=== PATIENT | female | born 1965 ===

== ENCOUNTER 2023-06-21 17:54 | Emergency (ER) | payer OTHER, SELFPAY ==
[2023-06-21 17:56] VITALS: BP 137/84
[2023-06-21 19:00] VITALS: BP 128/78
[2023-06-21 19:02] VITALS: BMI 25.8
[2023-06-21 20:00] VITALS: BP 126/59
--- NOTE | 2023-06-21 20:10 | ED.GENMED ---
History of Present Illness
General
Chief Complaint: Abdominal Pain
Source: patient
Exam Limitations: none
Time Seen by Provider: 06/21/23 19:25
Nursing documentation reviewed up to this point in time: agreed with
Travel History
Have you had any contact with someone who has COVID-19?: No
Do you have any symptoms of coronavirus? Fever > 100 degrees, chills, cough, shortness of breath, sore throat, loss of taste or smell, muscle aches, or headache?: No
History of Present Illness
History of Present Illness:
Patient presents to ED secondary to 2-day history of worsening left-sided abdominal pain. Abdominal pain described as sharp, nonradiating, without any alleviating or exacerbating factors. Denies nausea, vomiting, or diarrhea. Denies trauma.
Denies difficulty with urination. Denies previous history of similar symptoms. Patient reports receiving normal colonoscopy in the years past. Denies recent change in medications or diet. Denies recent travel. Denies sick contact.
Review of Systems
Review of Systems
Allergies reviewed?: Yes
All Other Systems: ROS reviewed and negative except as documented in HPI and ROS
Constitutional: Reports no symptoms
EENT: Reports no symptoms
Respiratory: Reports no symptoms
Cardiac: Reports no symptoms
ABD/GI: Reports abdominal pain; Denies nausea, vomiting or diarrhea
Musculoskeletal: Reports no symptoms
Skin: Reports no symptoms
Neurological: Reports no symptoms
Phy Exam
Physical Exam
Physical Exam:
Physical Exam
General: mild painful distress, not acutely ill. afebrile
Head: nc/at. eomi
Neck: supple. normal range of motion
Abdomen: normal bowel sounds. mild tenderness to palpation over suprapubic/LLQ, without distention
Neuro: alert and oriented. no focal neurological deficits
Skin: no rash
Psychiatric: well kept. interactive and cooperative
Extremities: no edema. no calf tenderness
Course
Orders/Labs/Results
Orders:
Orders
06/21/23 19:43
CT Abd/pelvis W Iv Cont Urgent
Comment:
Reason For Exam: LLQ pain
0.9% Sodium Chloride 500 ml [Nss] 500 ml IV BOLUS
06/21/23 20:21
Complete Blood Count/With Diff Urgent
Comprehensive Metabolic Panel Urgent
Magnesium Urgent
Urinalysis Reflex To Culture Urgent
Date Specimen was Collected: 06/21/23
Time Specimen was Collected: 20:06
Urine Microscopic Reflex Cult Urgent
06/21/23 20:40
HYDROmorphone [Dilaudid] 0.5 mg IV NOW STA
Abnormal Lab Results
06/21/23
20:21
RBC 3.92 L 10^6/uL
(4.20-5.40)
Hct 36.5 L %
(37.0-47.0)
MCH 32.4 H pg
(27.0-31.0)
Lymphocytes % 18.5 L %
(20.5-51.1)
AST 52 H U/L
(14-36)
ALT 73 H U/L
(0-35)
Urine Ketones 1+ A
(Negative)
Leukocyte Esterase Rfl Trace A
(Negative)
Urine Bacteria (Reflex) Few A
(Negative)
06/21/23 20:21
06/21/23 20:21
Vital Signs
Initial and Last Documented VS:
Initial Vital Signs
Temp Pulse Resp BP Pulse Ox
99.3 F 96 18 137/84 100
06/21/23 17:56 06/21/23 17:56 06/21/23 17:56 06/21/23 17:56 06/21/23 17:56
Last Documented Vital Signs
Temp Pulse Resp BP Pulse Ox
99.3 F 96 18 126/61 97
06/21/23 17:56 06/21/23 17:56 06/21/23 17:56 06/21/23 23:00 06/21/23 22:59
MDM/Problems Addressed
MDM/Problems Addressed:
Patient with an unremarkable workup in ED, including blood work and CT abdomen pelvis.
Repeat abd exam: soft and nontender during conversation.
History and exam consistent with likely nonspecific abdominal pain, possible viral versus early colitis versus ileus. Advised PCP f/u for re-evaluation, or return to ED with worsening symptoms, i.e. fever/worsening pain/vomiting. Pt expresses
understanding at time of discharge.
*Critical Care Note
Total Time (30-74mins, 75-104mins- exclusive of procedures): Not Applicable
ED Attending Note
-
Portions of this chart may have been created with voice recognition software.� Occasional wrong word or��sound alike� substitutions may have occurred due to the inherent limitations of voice recognition software.
Discharge Plan
Departure
Patient Disposition: Home (Routine Discharge)
Date of Disposition: 06/21/23
Time of Disposition: 23:56
Patient with high blood pressure during this ER visit?: Yes
Discharge Problem:
Abdominal pain
Instructions: Abdominal Pain
Referrals:
Michael Gutierrez MD [Family Provider] -
Activity Restrictions/Additional Instructions:
As discussed, please follow-up with your primary care physician for reevaluation. Please return to ED with worsening symptoms, i.e. fever/worsening pain/vomiting.
Interventions
Interventions:
*Risk Screen - Suicide Last Done: 06/21/23 17:56
*General Assessment Last Done: 06/21/23 17:56
*Neglect/Abuse Screening Last Done: 06/21/23 17:56
ED- Fall Risk Assessment Last Done: 06/21/23 19:02
*ED COVID-19 Vaccine History Last Done: 06/21/23 17:56
*Nursing Disposition Last Done: 06/22/23 00:12
PN-Ygwjga-Pnvprtkogo Assessment Last Done: 06/21/23 19:02
Discharge Date and Time
Discharge Date/Time: 06/22/23 00:20
Print Language: ALGERIAN
[2023-06-21] MEDS: NSS 500 IV (20:22)
[2023-06-21 20:28] LABS: % Basophils 0.3 % (0-2); % Eosinophils 0.9 % (0-6); % Immature Granulocytes 0.3 % (0-0.5); % Lymphocytes 18.5 % (20.5-51.1); % Monocytes 7.2 % (1.7-9.3); % Neutrophils 72.8 % (42.2-75.2); Absolute Eosinophils 0.1 10^3/uL (0-0.7); Absolute Lymphocytes 1.7 10^3/uL (1.2-3.4); Absolute Monocytes 0.6 10^3/uL (0.1-0.6); Absolute Neutrophils 6.5 10^3/uL (1.4-6.5); Hematocrit 36.5 % (37.0-47.0); Hemoglobin 12.7 g/dL (12.0-16.0); Mean Corp Hgb Conc. 34.8 g/dL (33.0-37.0); Mean Corpuscular Hgb 32.4 pg (27.0-31.0); Mean Corpuscular Volume 93.1 fL (81.0-99.0); Mean Platelet Volume 10.3 fL (7.4-10.4); Nucleated Red Blood Cells % 0 %; Platelet Count 195 10^3/uL (130-400); Red Blood Cell Count 3.92 10^6/uL (4.20-5.40); Red Cell Dist. Width 11.9 % (11.5-14.5); Urine Albumin Negative (Neg - Trace); Urine Bilirubin Negative (Negative); Urine Character Clear (Clear); Urine Color Yellow; Urine Glucose Negative (Negative); Urine Ketone 1+ (Negative); Urine Leukocyte Trace (Negative); Urine Nitrite Negative (Negative); Urine Occult Blood Negative (Negative); Urine Urobilinogen Negative (Neg - 1+); White Blood Cell Count 8.9 10^3/uL (4.8-10.8)
[2023-06-21 20:37] LABS: Urine Bacteria Few (Negative); Urine Red Blood Cell 0-2 /HPF (0-2); Urine Urothelial Cell 0-2 /LPF (FEW)
[2023-06-21] MEDS: DILAUDID 0.5 MG IV (20:41)
[2023-06-21 21:00] VITALS: BP 125/66
[2023-06-21 21:04] LABS: ALT (SGPT) 73 U/L (0-35); AST (SGOT) 52 U/L (14-36); Albumin 4.4 g/dl (3.5-5.0); Alkaline Phosphatase 86 U/L (38-126); Blood Urea Nitrogen 17 mg/dl (7-17); Calcium 9.6 mg/dl (8.4-10.2); Carbon Dioxide 24 mmol/L (22-30); Chloride 104 mmol/L (98-107); Estimated Creatinine Clearance 87 ml/min; Glucose 93 mg/dl (70-99); Potassium 4.3 mmol/L (3.5-5.1); Sodium 135 mmol/L (135-145); Total Bilirubin 1.1 mg/dl (0.2-1.3); Total Protein 6.7 g/dl (6.3-8.2); eGFR > 60.00
[2023-06-21 22:08] VITALS: BP 137/77
[2023-06-21 23:00] VITALS: BP 126/61
== END 2023-06-22 00:20 | disposition home or self-care (01) ==
LOC: EMR 17:54
PROVIDERS: EMERGENCY PHYSICIAN Emergency Medicine; FAMILY PHYSICIAN Internal Medicine
DX: R10.9 Unspecified abdominal pain (principal); R03.0 Elevated blood-pressure reading, without diagnosis of hypertension
CPT/HCPCS: 99285; 96374; 96361; 74177; 80053; 81003; 81015; 83735; 85025; Q9967